=== PATIENT | female | born 1930 | race Caucasian/White ===

== ENCOUNTER 2017-02-15 15:29 | Emergency (ER) | payer OTHER ==
[~2017-02-15] VITALS: Ht 162.6 cm; Wt 74.8 kg
[~2017-02-15 15:29] MED LIST: ACET325T53 PO; ALEN70TA3 PO; ANT30 PO; CALC1TAB27 PO; DOCU50CA3 PO; FERR325T30 PO; FURO-150 PO; HYDR-1189 PO; ISOS60TA PO; LIP80 PO; METO25TA6 PO; NITSL SL; OMEP20CA10 PO; TEMA15CA51 PO; TIOT18CA3 IH; WARF1TAB2 PO
--- NOTE | 2017-02-15 15:36 | NUR ---
Patient to ER bed 6 to gown for evaluation. Side rails up. Report given to Otf JOHN.
[2017-02-15 15:39] VITALS: BP_SYST 136
[2017-02-15 16:20] LABS: BASOPHILS # (AUTO) 0.2 K/uL (0.0-0.2); BASOPHILS % (AUTO) 2.2 % (0.0-2.0); EOSINOPHILS % (AUTO) 0.3 % (0.0-4.0); HEMATOCRIT 34.4 % (36-48); HEMOGLOBIN 11.1 g/dL (12.0-16.0); LYMPHOCYTES # (AUTO) 0.2 K/uL (1.0-5.5); LYMPHOCYTES % (AUTO) 1.9 % (20.5-51.5); MEAN CORPUSCULAR HEMOGLOBIN 29 pg (27-31); MEAN CORPUSCULAR HGB CONC 32 % (32-36); MEAN CORPUSCULAR VOLUME 90 fL (79.0-98.0); MONOCYTES # (AUTO) 0.2 K/uL (0.0-1.0); MONOCYTES % (AUTO) 1.7 % (1.7-9.3); NEUTROPHILS # (AUTO) 10.2 K/uL (1.8-7.7); NEUTROPHILS % (AUTO) 93.9 % (40.0-70.0); PLATELET COUNT (AUTO) 199 K/uL (130-430); RED BLOOD CELL COUNT(AUTO) 3.81 MIL/uL (4.2-6.2); RED CELL DISTRIBUTION WIDTH 16.2 % (9.0-15.0); WHITE BLOOD COUNT (AUTO) 10.8 K/uL (4.8-10.8)
[2017-02-15 16:31] LABS: ANION GAP 10 (5-15); CALCIUM 8.6 mg/dL (8.4-11.0); CHLORIDE 103 mmol/L (98-107); CREATININE 1.52 mg/dL (0.55-1.30); GLUCOSE 118 mg/dL (70-99); POTASSIUM 3.8 mmol/L (3.5-5.1); SODIUM SERUM 139 mmol/L (136-145); UREA NITROGEN, BLOOD 39 mg/dL (8-21)
[2017-02-15 16:37] LABS: ALANINE AMINOTRANSFERASE 24 U/L (12-78); ALBUMIN 3.1 g/dL (3.4-4.8); AMYLASE 70 U/L (0-100); ASPARTATE AMINOTRANSFERASE 37 U/L (10-37); LIPASE 166 U/L (73-393); TOTAL BILIRUBIN 0.5 mg/dL (0.0-1.0)
--- NOTE | 2017-02-15 16:50 | NUR ---
Family at bedside for additional hx. Family reports pt h/o R breast CA,afib and CHF.
[2017-02-15 16:54] LABS: PROTHROMBIN TIME 60.6 SECS (9.5-12.5)
[2017-02-15 16:56] LABS: INR 5.8 (0.8-1.2)
[2017-02-15] MEDS ORDERED: PHYTONADIONE 10 MG/ML AMP IM ONE (18:15)
--- NOTE | 2017-02-15 18:20 | NUR ---
Straight cath inserted. Pt tolerated well. Waiting for urine collection.
--- NOTE | 2017-02-15 18:37 | NUR ---
Patient transported to radiology via gurney, accompanied by rad staff.
--- NOTE | 2017-02-15 18:45 | NUR ---
Returned from radiology, back to [facility]. Pt tolerated well.
--- NOTE | 2017-02-15 18:50 | NUR ---
[place] straight cath removed, urine specimen collected & sent to lab.
[2017-02-15 19:09] LABS: BILIRUBIN,URINE NEGATIVE (NEGATIVE); BLOOD, URINE 1+ (NEGATIVE); CLARITY/URINE HAZY (CLEAR); COLOR,URINE YELLOW (YELLOW); GLUCOSE,URINE NEGATIVE (NEGATIVE); KETONES,URINE TRACE (NEGATIVE); LEUKOCYTE ESTERASE ,URINE 2+ (NEGATIVE); NITRITE, URINE NEGATIVE (NEGATIVE); PH,URINE 5.5 (5.0-8.0); PROTEIN URINE NEGATIVE (NEGATIVE); UROBILINOGEN,URINE 0.2 (0.2-1.0)
[2017-02-15] MEDS ORDERED: PIPERACILLIN/TAZO 3.375 GM in NS 50 ML IV ONE (19:15)
[2017-02-15] MEDS ORDERED: cefTRIAXone 1 GM in D5W 50 ML IV ONE (19:15)
[2017-02-15 19:20] LABS: BACTERIA,URINE MANY /HPF (None Seen); WBC,URINE 50-80 /HPF (0-3)
[2017-02-15] MEDS ORDERED: cefTRIAXone 1 GM VIAL ONE (19:22)
[2017-02-15] MEDS ORDERED: PIPERACILLIN/TAZOBACTAM 3.375 GM/VIAL (ZOSYN) IV ONE (19:22)
[2017-02-15] MEDS ORDERED: NACL 0.9% 1,000 ML IV ONE (19:30)
[2017-02-15 21:23] VITALS: BP_SYST 107
--- NOTE | 2017-02-15 21:23 | NUR ---
Patient to be transferred back to [facility]. Report called to Paz at receiving facility. BLS present getting pt ready for transfer. Pt in stable condition.
--- NOTE | 2017-02-15 21:30 | NUR ---
Called [facility] and spoke w [employer] Paz. Updated her on pts condition and to hold coumadin for now, then have pt follow up w coumadin clinic in 1-2 days. Paz states pt not on medical program and requesting to contact [facility]. Will notify daughter re pts status.
--- NOTE | 2017-02-15 21:36 | NUR ---
Called pts daughter Ramila @ to update her re pts condition; however no answer. Message left to call back [facility] ER for report.
--- NOTE | 2017-02-15 21:40 | NUR ---
Received call back from pts daughter, Ramila. Updated her on pts status and advised to have pt follow up w coumadin clinic in 1-2 days. Daughter reports pt sees coumadin clinic regularly. Reinforced w daughter to hold Coumadin until pt can be seen at clinic. Daughter verbalizes understanding.
== END 2017-02-15 21:23 | disposition home or self-care (01) ==
LOC: SED 15:29
DX: N17.9 Acute kidney failure, unspecified (principal); D68.9 Coagulation defect, unspecified; I10 Essential (primary) hypertension; Z86.73 Personal history of transient ischemic attack (TIA), and cerebral infarction without residual deficits; Z88.1 Allergy status to other antibiotic agents; Z79.899 Other long term (current) drug therapy
CPT/HCPCS: 36415; 71010; 74176; 80053; 81000; 82150; 83605; 83690; 84484; 85025; 85610; 87040; 87086; 87186; 93005; 96365; 96367; 96372; 99285; J0696; J2543; J3430; J7030; J7060

== ENCOUNTER 2017-08-30 07:23 | Emergency (ER) | payer OTHER ==
[~2017-08-30] VITALS: Ht 160 cm; Wt 56.7 kg
[2017-08-30 07:23] VITALS: BP_SYST 155
[2017-08-30] MEDS ORDERED: NACL 0.9% 1,000 ML IV ONE (07:30)
[2017-08-30] MEDS ORDERED: IPRATROPIUM/ALBUTEROL SULFATE 3 ML AMPUL.NEB INH ONE (07:45)
[2017-08-30 07:52] LABS: BASOPHILS % (AUTO) 0.5 % (0.0-2.0); EOSINOPHILS # (AUTO) 0.2 K/uL (0.0-0.4); EOSINOPHILS % (AUTO) 3.3 % (0.0-4.0); HEMATOCRIT 32.8 % (36-48); HEMOGLOBIN 10.3 g/dL (12.0-16.0); LYMPHOCYTES # (AUTO) 1.6 K/uL (1.0-5.5); LYMPHOCYTES % (AUTO) 22.1 % (20.5-51.5); MEAN CORPUSCULAR HEMOGLOBIN 28 pg (27-31); MEAN CORPUSCULAR HGB CONC 31 % (32-36); MEAN CORPUSCULAR VOLUME 90 fL (79.0-98.0); MONOCYTES # (AUTO) 1.1 K/uL (0.0-1.0); MONOCYTES % (AUTO) 15.1 % (1.7-9.3); NEUTROPHILS # (AUTO) 4.5 K/uL (1.8-7.7); PLATELET COUNT (AUTO) 281 K/uL (130-430); RED BLOOD CELL COUNT(AUTO) 3.67 MIL/uL (4.2-6.2); RED CELL DISTRIBUTION WIDTH 19.9 % (9.0-15.0); WHITE BLOOD COUNT (AUTO) 7.4 K/uL (4.8-10.8)
[2017-08-30] MEDS ORDERED: PLA200 PO (07:57)
[2017-08-30] MEDS ORDERED: OMEP20CA10 PO (07:57)
[2017-08-30] MEDS ORDERED: PRED5TAB PO (07:57)
[2017-08-30] MEDS ORDERED: LOSA25TA3 PO (07:57)
[2017-08-30] MEDS ORDERED: POTA20TA83 PO (07:57)
[2017-08-30] MEDS ORDERED: ISOS60TA4 PO (07:57)
[2017-08-30] MEDS ORDERED: LEVO88TA5 PO (07:57)
[2017-08-30] MEDS ORDERED: AMI200 PO (07:57)
[2017-08-30] MEDS ORDERED: FURO-149 PO (07:57)
[2017-08-30] MEDS ORDERED: methylPREDNISolone SOD SUCC/PF 62.5 MG/ML VIAL IVP ONE (08:00)
[2017-08-30 08:05] LABS: ANION GAP 9 (5-15); CALCIUM 8.3 mg/dL (8.4-11.0); CHLORIDE 104 mmol/L (98-107); CREATININE 1.37 mg/dL (0.55-1.30); GLUCOSE 219 mg/dL (70-99); POTASSIUM 3.6 mmol/L (3.5-5.1); SODIUM SERUM 141 mmol/L (136-145); UREA NITROGEN, BLOOD 26 mg/dL (8-21)
[2017-08-30 08:10] LABS: ALANINE AMINOTRANSFERASE 72 U/L (12-78); ALBUMIN 2.7 g/dL (3.4-4.8); ASPARTATE AMINOTRANSFERASE 92 U/L (10-37); TOTAL BILIRUBIN 0.8 mg/dL (0.0-1.0)
[2017-08-30 08:20] LABS: PROTHROMBIN TIME 41.5 SECS (9.5-12.5)
[2017-08-30] MEDS ORDERED: ENALAPRILAT DIHYDRATE 1.25 MG/ML VIAL IVP ONE (09:15)
[2017-08-30] MEDS ORDERED: NITROGLYCERIN 1 INCH (GM) OINT. TP ONE (09:15)
[2017-08-30 10:08] LABS: BILIRUBIN,URINE NEGATIVE (NEGATIVE); BLOOD, URINE NEGATIVE (NEGATIVE); COLOR,URINE YELLOW (YELLOW); GLUCOSE,URINE NEGATIVE (NEGATIVE); KETONES,URINE NEGATIVE (NEGATIVE); LEUKOCYTE ESTERASE ,URINE NEGATIVE (NEGATIVE); NITRITE, URINE NEGATIVE (NEGATIVE); PH,URINE 5.5 (5.0-8.0); PROTEIN URINE TRACE (NEGATIVE); UROBILINOGEN,URINE 0.2 (0.2-1.0)
[2017-08-30 10:09] LABS: CLARITY/URINE CLEAR (CLEAR)
[2017-08-30 11:20] VITALS: BP_SYST 114
== END 2017-08-30 15:19 | disposition short-term general hospital (02) ==
LOC: SED 07:23
DX: I50.9 Heart failure, unspecified (principal); I10 Essential (primary) hypertension; Z86.73 Personal history of transient ischemic attack (TIA), and cerebral infarction without residual deficits; Z88.1 Allergy status to other antibiotic agents; Z79.899 Other long term (current) drug therapy
CPT/HCPCS: 36415; 36600; 71045; 80053; 81003; 82803; 83605; 83880; 84484; 85025; 85610; 85730; 87040; 93005; 94640; 96365; 96375; 99291; J1956; J2930; J7030; J7620

== ENCOUNTER 2018-02-15 16:58 | Emergency (ER) | payer OTHER ==
[~2018-02-15] VITALS: Ht 157.5 cm; Wt 53.5 kg
[2018-02-15 16:58] VITALS: BP_SYST 111
[~2018-02-15 16:58] MED LIST changes: -ACET325T53 PO; +AMIO200T3 PO; -ANT30 PO; -DOCU50CA3 PO; -FERR325T30 PO; +FURO-149 PO; -FURO-150 PO; -HYDR-1189 PO; +HYDR200T80 PO; -ISOS60TA PO; +ISOS60TA4 PO; +LEVO88TA5 PO; +LOSA25TA3 PO; +POTA20TA83 PO; +PRED5TAB PO; -TEMA15CA51 PO; -TIOT18CA3 IH
[2018-02-15] MEDS ORDERED: DILTIAZEM HCL 25 MG/5 ML VIAL IVP ONE (17:30)
[2018-02-15 17:34] LABS: ANION GAP 7 (5-15); CALCIUM 8.7 mg/dL (8.4-11.0); CHLORIDE 106 mmol/L (98-107); CREATININE 1.28 mg/dL (0.55-1.30); GLUCOSE 145 mg/dL (70-99); POTASSIUM 3.7 mmol/L (3.5-5.1); SODIUM SERUM 143 mmol/L (136-145); UREA NITROGEN, BLOOD 25 mg/dL (8-21)
[2018-02-15 17:37] LABS: HEMATOCRIT 38.8 % (36-48); HEMOGLOBIN 12.1 g/dL (12.0-16.0); MEAN CORPUSCULAR HEMOGLOBIN 28 pg (27-31); MEAN CORPUSCULAR HGB CONC 31 % (32-36); MEAN CORPUSCULAR VOLUME 89 fL (79.0-98.0); NEUTROPHILS % (AUTO) 57.5 % (40.0-70.0); PLATELET COUNT (AUTO) 221 K/uL (130-430); RED BLOOD CELL COUNT(AUTO) 4.37 MIL/uL (4.2-6.2); RED CELL DISTRIBUTION WIDTH 16.8 % (9.0-15.0); WHITE BLOOD COUNT (AUTO) 6.3 K/uL (4.8-10.8)
[2018-02-15 17:38] LABS: BASOPHILS # (AUTO) 0.1 K/uL (0.0-0.2); BASOPHILS % (AUTO) 1.7 % (0.0-2.0); EOSINOPHILS % (AUTO) 0.5 % (0.0-4.0); LYMPHOCYTES # (AUTO) 1.3 K/uL (1.0-5.5); LYMPHOCYTES % (AUTO) 21.8 % (20.5-51.5); MONOCYTES # (AUTO) 1.1 K/uL (0.0-1.0); MONOCYTES % (AUTO) 18.5 % (1.7-9.3); NEUTROPHILS # (AUTO) 3.6 K/uL (1.8-7.7)
[2018-02-15 17:39] LABS: ALANINE AMINOTRANSFERASE 30 U/L (12-78); ALBUMIN 2.9 g/dL (3.4-4.8); ASPARTATE AMINOTRANSFERASE 40 U/L (10-37); TOTAL BILIRUBIN 0.8 mg/dL (0.0-1.0)
[2018-02-15 17:45] LABS: INR 3.9 (0.8-1.2)
[2018-02-15] MEDS ORDERED: NACL 0.9% 1,000 ML IV ONE (17:45)
[2018-02-15 20:23] VITALS: BP_SYST 126
== END 2018-02-15 20:23 | disposition short-term general hospital (02) ==
LOC: SED 16:58
DX: I48.91 Unspecified atrial fibrillation (principal); I11.0 Hypertensive heart disease with heart failure; I50.9 Heart failure, unspecified; Z86.73 Personal history of transient ischemic attack (TIA), and cerebral infarction without residual deficits; Z88.1 Allergy status to other antibiotic agents; Z79.899 Other long term (current) drug therapy
CPT/HCPCS: 36415; 71045; 80053; 82550; 83880; 84484; 85025; 85610; 85730; 93005; 96360; 99285; J7040; J7030

== ENCOUNTER 2018-03-10 16:43 | Emergency (ER) | payer OTHER ==
[~2018-03-10] VITALS: Ht 152.4 cm; Wt 49.4 kg
[2018-03-10 16:53] VITALS: BP_SYST 114
[2018-03-10] MEDS ORDERED: NACL 0.9% 1,000 ML IV ONE (17:00)
[2018-03-10] MEDS ORDERED: ONDANSETRON HCL 4 MG/2 ML VIAL IVP ONE (17:00)
[2018-03-10 17:28] LABS: BASOPHILS # (AUTO) 0.1 K/uL (0.0-0.2); BASOPHILS % (AUTO) 1.3 % (0.0-2.0); EOSINOPHILS # (AUTO) 0.1 K/uL (0.0-0.4); EOSINOPHILS % (AUTO) 0.8 % (0.0-4.0); HEMATOCRIT 33.4 % (36-48); HEMOGLOBIN 10.8 g/dL (12.0-16.0); LYMPHOCYTES # (AUTO) 0.3 K/uL (1.0-5.5); LYMPHOCYTES % (AUTO) 3.8 % (20.5-51.5); MEAN CORPUSCULAR HEMOGLOBIN 29 pg (27-31); MEAN CORPUSCULAR HGB CONC 32 % (32-36); MEAN CORPUSCULAR VOLUME 91 fL (79.0-98.0); MONOCYTES # (AUTO) 0.6 K/uL (0.0-1.0); MONOCYTES % (AUTO) 8.2 % (1.7-9.3); NEUTROPHILS # (AUTO) 6.1 K/uL (1.8-7.7); NEUTROPHILS % (AUTO) 85.9 % (40.0-70.0); PLATELET COUNT (AUTO) 282 K/uL (130-430); RED BLOOD CELL COUNT(AUTO) 3.69 MIL/uL (4.2-6.2); RED CELL DISTRIBUTION WIDTH 20.5 % (9.0-15.0); WHITE BLOOD COUNT (AUTO) 7.2 K/uL (4.8-10.8)
[2018-03-10 17:35] LABS: ANION GAP 11 (5-15); CALCIUM 8.4 mg/dL (8.4-11.0); CHLORIDE 109 mmol/L (98-107); CREATININE 1.24 mg/dL (0.55-1.30); GLUCOSE 115 mg/dL (70-99); POTASSIUM 3.4 mmol/L (3.5-5.1); SODIUM SERUM 146 mmol/L (136-145); UREA NITROGEN, BLOOD 41 mg/dL (8-21)
[2018-03-10 17:39] LABS: ALANINE AMINOTRANSFERASE 24 U/L (12-78); ALBUMIN 2.5 g/dL (3.4-4.8); ASPARTATE AMINOTRANSFERASE 40 U/L (10-37); LIPASE 148 U/L (73-393); TOTAL BILIRUBIN 1.2 mg/dL (0.0-1.0)
[2018-03-10 20:15] VITALS: BP_SYST 116
== END 2018-03-10 20:30 | disposition short-term general hospital (02) ==
LOC: SED 16:43
DX: K52.9 Noninfective gastroenteritis and colitis, unspecified (principal); E86.0 Dehydration; I11.0 Hypertensive heart disease with heart failure; I50.9 Heart failure, unspecified; J45.909 Unspecified asthma, uncomplicated; K21.9 Gastro-esophageal reflux disease without esophagitis; Z86.73 Personal history of transient ischemic attack (TIA), and cerebral infarction without residual deficits; Z88.1 Allergy status to other antibiotic agents; Z79.899 Other long term (current) drug therapy
CPT/HCPCS: 36415; 80053; 82803; 83605; 83690; 85025; 96361; 96374; 99285; J2405; J7030